=== PATIENT | male | born 1970 | race Hispanic/Latino ===

== ENCOUNTER → 2018-01-25 | Outpatient (CLI) | payer BC | END | disposition home or self-care (01) | LOC: RAH 10:39 | PROVIDERS: ATTEND Physical Medicine & Rehabilitation | DX: M47.26 Other spondylosis with radiculopathy, lumbar region (principal); M48.061 Spinal stenosis, lumbar region without neurogenic claudication; M48.54XA Collapsed vertebra, not elsewhere classified, thoracic region, initial encounter for fracture | CPT/HCPCS: 72114 ==

== ENCOUNTER → 2018-08-27 | Outpatient (CLI) | payer BC | END | disposition home or self-care (01) | LOC: RAH 13:49 | PROVIDERS: ATTEND Physical Medicine & Rehabilitation | DX: M51.16 Intervertebral disc disorders with radiculopathy, lumbar region (principal); M47.26 Other spondylosis with radiculopathy, lumbar region | CPT/HCPCS: 72148 ==

== ENCOUNTER → 2019-11-04 | Outpatient (CLI) | payer BC | END | disposition home or self-care (01) | LOC: RAH 12:00 | PROVIDERS: ATTEND Neurological Surgery | DX: M51.17 Intervertebral disc disorders with radiculopathy, lumbosacral region (principal); Z98.1 Arthrodesis status | CPT/HCPCS: 72131 ==